=== PATIENT | male | born 1955 | race Caucasian/White ===

== ENCOUNTER 2022-04-02 13:24 | Emergency (ER) | payer MEDICARE, OTHER, SELFPAY ==
[2022-04-02 13:33] VITALS: BP 147/76; PULSE 92; RESP 20; TEMP 36.3; O2SAT 100
--- NOTE | 2022-04-02 13:53 | ED.SKABFB ---
HPI - Skin/Abscess/Foreign Bdy General Chief complaint: Skin/Abscess/Foreign Body Stated complaint: Rash all over Time Seen by Provider: 04/02/22 13:53 Source: patient, RN notes reviewed and old records reviewed Mode of arrival: ambulatory Limitations: no limitations History of Present Illness HPI narrative: 66 year old male presents to [facility] care with complaints of rash to his torso, legs, hands and heels for the past month. He states that he has tried many over the counter medications for his rash with no improvement, states that Bactine helps the most.He reports that rash feels like a light sunburn, he has been cleaning skin twice day with antibacterial soap. Rash noted to be light pink in color with no macular-papular lesions or vesicles noted, notes some itching. MD complaint: rash Onset (ago): month(s) (1) Severity scale (1-10): 2 Quality: burning, aching and pruritic (slight) Treatments prior to arrival: other (reports several OTC medications ) Related Data Allergies Allergy/AdvReac Type Severity Reaction Status Date / Time amoxicillin Allergy Unknown RASH Verified 03/28/19 10:21 Review of Systems Review of Systems: CONSTITUTIONAL: Denies fever, chills, or sweats. EYES: Denies visual changes, redness, or discharge. ENT: Denies rhinorrhea, congestion, sore throat, or otalgia. CARDIOVASCULAR: Denies chest pain, palpitations, or edema. RESPIRATORY: Denies cough or dyspnea. GASTROINTESTINAL: Denies abdominal pain, nausea, vomiting, or diarrhea. GENITOURINARY: Denies dysuria or hematuria. SKIN: Positive for rash to torso legs, hands and heels feels like a sunburn, minimal itch MUSCULOSKELETAL: Denies back pain, joint pain, or myalgia. NEUROLOGIC: Denies headache, numbness, or weakness. PSYCHIATRIC: Denies anxiety or depression. All systems reviewed & are unremarkable except as noted in HPI and below PMFSH Past Medical History Medical History (Updated 04/03/22 @ 16:33 by Rissa Alford NP) Diabetes reports weight controlled Hypertension Myocardial infarction Pilonidal cyst Right clavicle fracture Surgical History Surgical History (Updated 04/03/22 @ 16:32 by Rissa Alford NP) H/O heart artery stent x2 Hx of tonsillectomy Social History Social History (Updated 04/03/22 @ 16:34 by Rissa Alford NP) Smoking status: Former smoker Additional smoking assessment comments: Quit 2002 after smoking 16 years Alcohol intake: unknown Substance use: never Substance use type: does not use Gender identity (if verbalized by the patient): Male Comments at time of signature agree with nursing documentation of past medical, surgical, social and family history. There is no relevant family history pertinent to presenting complaint. Exam Narrative: GENERAL: Well-appearing, well-nourished, and in no acute distress. HEAD: Normocephalic, atraumatic. EYES: PERRLA and EOMI. ENT: Nares clear, no rhinorrhea or epistaxis. Mucous membranes moist.TM's normal with good light reflex, throat pink, no lesions no tonsils present NECK: Supple.no lymphadenopathy CHEST: Clear to auscultation. No respiratory distress. No cough or congestion SaO2 100% on room air HEART: Regular rate and rhythm. No murmur heard. Normal peripheral pulses. ABDOMEN: Soft, nontender, nondistended, normal active bowel sounds. EXTREMITIES: Normal range of motion. No edema. SKIN: Warm, dry, rash reported to torso, legs, hands, and heels skin is darker pink with no macularpapular lesions is itchy NEURO: No focal deficits. Alert and oriented x3. Course Course Level of Care: Express Care Visit Vital Signs Vital signs: Vital Signs Temperature 36.3 C L 04/02/22 13:33 Pulse Rate 92 04/02/22 13:33 Respiratory Rate 20 04/02/22 13:33 Blood Pressure 147/76 H 04/02/22 13:33 Pulse Oximetry 100 04/02/22 13:33 Oxygen Delivery Room Air 04/02/22 13:33 Temperature 36.3 C L 04/02/22 13:33 Pulse Rate 92 04/02/22 13:33 Respir
== END 2022-04-02 14:20 | disposition home or self-care (01) ==
PROVIDERS: Emergency Provider Registered Nurse
DX: L25.9 Unspecified contact dermatitis, unspecified cause (principal); Z87.891 Personal history of nicotine dependence; E11.9 Type 2 diabetes mellitus without complications; I10 Essential (primary) hypertension; I25.2 Old myocardial infarction; Z95.5 Presence of coronary angioplasty implant and graft
CPT/HCPCS: 99203; G0463

== ENCOUNTER 2023-09-21 10:14 | Emergency (ER) | payer MEDICARE, OTHER, SELFPAY ==
[2023-09-21] VITALS (48 sets, daily range): BP systolic 100–141; BP diastolic 63–91; PULSE 85–116; RESP 21–36; TEMP 36.4–36.8; O2SAT 85–96
--- NOTE | ~2023-09-21 | XR_ITS ---
XR chest 1V portable DATE: 09/21/2023 10:58 INDICATION: Shortness of breath TECHNIQUE: Portable AP chest on 09/21/2023 at 1101 hours COMPARISON: None FINDINGS: Prominent diffuse patchy consolidating infiltrates throughout both lungs, more prominent ce ntrally, suggesting severe pulmonary edema. Pneumonia is not excluded. Heart size is not optimally evaluated on AP projection because of magnification. Aortic arch calcification. Minimal if any pleural effusions. No pneumothorax. IMPRESSION: Severe diffuse patchy bilateral consolidating pulmonary infiltrates suggesting pulmonary edema and/or pneumonia Reviewed, dictated and finalized at location [facility]. OR SECURITY ARCHITECT
--- NOTE | ~2023-09-21 | CT_ITS ---
Clinical Indication: Shortness of breath CT Scan of the Chest with Contrast: Technique: Contiguous sections were acquired throughout the chest after intravenous administration of 100 cc of Omnipaque 350. Dose reduction technique was used on this scan by utilizing automated expos ure control and iterative reconstruction technique. The dose-length product (DLP) was 469.56 mGy-cm. Findings: There is no evidence of any significant mediastinal, hilar or axillary lymphadenopathy. There is no f illing defect in the pulmonary arterial tree to suggest pulmonary embolus. There is no evidence of ao rtic aneurysm. No pericardial effusion. There are moderate to large bilateral pleural effusions. There is extensive airspace consolidation in the aerated lungs, compatible with severe pulmonary edema. Images through the upper abdomen reveal n o abnormalities. Impression: No evidence of pulmonary embolus. Findings most consistent with severe pulmonary edema with moderate to large bilateral pleural effusio ns. Reviewed, dictated and finalized at [facility]. ZER OPERATOR Impression: No evidence of pulmonary embolus. Findings most consistent with severe pulmonary edema with moderate to large joao ateral pleural effusions.
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
--- NOTE | 2023-09-21 10:44 | ECG_ITS ---
Measurements Intervals [place] Rate: 107 P: CO: 0 QRS: 0 QRSD: 99 T: -60 QT: 347 QTc: 464 Interpretive Statements SINUS OR ECTOPIC ATRIAL TACHYCARDIA MINIMAL Q WAVES- HIGH LATERAL LEADS CANNOT RULE OUT SEPTAL INFARCT, AGE INDETERMINATE ST-T WAVE ABNORMALITY IN INF/LAT LEADS- CONSIDER ISCHEMIA BASELINE WANDER- I, II, III, AVL, AVF, V4-V6 ABNORMAL ECG NO PREVIOUS ECG AVAILABLE FOR COMPARISON Electronically Signed On 09-21-2023 11:12:29 ONLINE MERCHANDISING COORDINATOR by Augustin Bryson D.O.
[2023-09-21] MEDS: SILVER SULFADIAZINE 1% CR 50 GM JAR (*BKC) 1 APPLIC TOPICAL (11:13)
[2023-09-21 11:14] LABS: Basophils Absolute Auto 0.04 K/mm3 (0.00-0.10); Basophils Percent Auto 0.3 % (0.0-1.0); Eosinophils Absolute Auto 0.08 K/mm3 (0.02-0.50); Eosinophils Percent Auto 0.7 % (1.0-6.0); Hemoglobin 12.1 g/dL (12.4-15.3); Immature Granulocyte Absolute 0.05 K/mm3 (0.00-0.00); Immature Granulocyte Percent A 0.4 % (0.0-0.0); Lymphocytes Absolute Auto 1.35 K/mm3 (1.10-4.50); Lymphocytes Percent Auto 11.5 % (18.0-42.0); Mean Corpuscular HGB Conc 31.8 g/dL (32.0-36.0); Mean Corpuscular Volume 97.4 fL (78.0-102.0); Monocytes Absolute Auto 0.69 K/mm3 (0.10-0.90); Monocytes Percent Auto 5.9 % (2.0-11.0); Neutrophils Absolute Auto 9.6 K/mm3 (1.7-7.2); Neutrophils Percent Auto 81.2 % (50.0-70.0); Platelet Count Result 276 K/mm3 (150-420); Red Cell Distribution Width 12.9 % (11.6-14.4); White Blood Count 11.8 K/mm3 (4.8-10.8)
[2023-09-21 11:29] LABS: INR 1.2; Partial Thromboplastin Time 31.5 SEC (23.90-30.70); Prothrombin Time 12.8 Seconds (9.50-12.10)
[2023-09-21 11:30] LABS: D Dimer 1.24 mg/L (0.19-0.50)
[2023-09-21 11:31] LABS: Base Excess ABG 1.2 mmol/L (0-2); Oxygen Saturation ABG 90.4 % (95-97); Oxyhemoglobin 89.6 % (94-100); PCO2 ABG 32.5 mmHg (35-45); PO2 ABG 59.2 mmHg (75-85); Total Hemoglobin 12.7 g/dL (12.0-18.0); pH ABG 7.49 (7.35-7.45)
[2023-09-21 11:34] LABS: Device ROOM AIR; Modified Allen's Test Pass; Site Drawn RIGHT RADIAL
[2023-09-21 11:39] LABS: Alanine Aminotransferase 27 U/L (16-63); Albumin Level 2.4 g/dL (3.4-5.0); Alkaline Phosphatase 63 U/L (46-116); Anion Gap 8 mmol/L (8-16); Aspartate Amino Transferase 25 U/L (15-37); Bilirubin,Total 0.6 mg/dL (0.00-1.00); Blood Urea Nitrogen 23 mg/dL (7-18); Calcium 8.1 mg/dL (8.5-10.1); Carbon Dioxide 30 mmol/L (21-32); Chloride 99 mmol/L (98-108); Estimated CRCL calculation 71 ml/min; Estimated Glomerular Filt Rate > 60; Glucose 207 mg/dL (70-99); NT Pro B Type Natriuretic Pept 6571 pg/mL (0-125); Osmolality Calculated 293 mOsm/kg (285-295); Potassium 4.2 mmol/L (3.5-5.1); Sodium 137 mmol/L (136-145); Total Protein 6.4 g/dL (6.4-8.2)
[2023-09-21 11:50] LABS: SARS-CoV-2 RNA PCR Positive (Negative)
[2023-09-21 12:00] LABS: Influenza A QL RT-PCR Negative (Negative); Influenza B QL RT-PCR Negative (Negative); Lipase 18 U/L (16-77); Magnesium 1.7 mg/dL (1.8-2.4); RSV RNA, RT-PCR Negative (Negative); Thyroid Stimulating Hormone 1.53 uIU/mL (0.36-3.74)
[2023-09-21 12:02] LABS: Troponin I 194.5 ng/L (0.00-60.4)
[2023-09-21] MEDS: LACTATED RINGERS 500 ML 999 ML IV CONT (12:28)
[2023-09-21] MEDS: MAGNESIUM SULF 2 GM/WATER 50ML 2 GM/50 ML BAG IVPB (12:57)
[2023-09-21] MEDS: FUROSEMIDE INJ 20 MG/2 ML VIAL IV PUSH (13:38)
[2023-09-21] MEDS: AZITHROMYCIN 500 MG/NS 250 ML 500 MG/250 ML BAG 250 MG IVPB (14:00)
[2023-09-21] MEDS: ASPIRIN 81 MG CHEWABLE TABLET 324 MG PO (15:22)
[2023-09-21] MEDS: HEPARIN SODIUM 5,000 UNITS/ML VIAL 4000 UNITS IV PUSH (15:24)
[2023-09-21] MEDS: HEPARIN SOD/D5W 100 UNITS/ML 25,000 UNITS/250 ML BAG 9 UNITS IV CONT (15:25)
--- NOTE | 2023-09-27 13:08 | PC.NURSE ---
FINAL BLOOD CULTURE RESULTS X2: NO GROWTH AFTER 5 DAYS. NO ACTION NEEDED.
== END 2023-09-21 17:35 | disposition short-term general hospital (02) ==
PROVIDERS: Emergency Provider Internal Medicine Critical Care Medicine; PCP Hospitalist
DX: I21.4 Non-ST elevation (NSTEMI) myocardial infarction (principal); I11.0 Hypertensive heart disease with heart failure; I50.9 Heart failure, unspecified; E11.65 Type 2 diabetes mellitus with hyperglycemia; T25.322A Burn of third degree of left foot, initial encounter; I25.2 Old myocardial infarction; Z87.891 Personal history of nicotine dependence; Z20.822 Contact with and (suspected) exposure to COVID-19; W29.2XXA Contact with other powered household machinery, initial encounter
CPT/HCPCS: 36415; 36600; 71045; 71275; 80053; 82805; 83605; 83690; 83735; 83880; 84443; 84484; 85025; 85380; 85610; 85730; 87040; 87637; 93005; 96365; 96366; 96367; 96375; 99285; A9270; J0456; J1644; J1940; J3475; J7120; Q9967